=== PATIENT | female | born 1985 | race Caucasian/White ===

== ENCOUNTER 2017-02-10 10:08 | Observation (INO) | payer OTHER ==
[~2017-02-10 10:08] MED LIST: BENTYL20 M1 PO; COMPAZINE10 MG PO; COMPAZINE25 M1 RC; FIORICET1 TA1 PO; GLUCOPHAGE500 MG/TAB PO; HUMALOG100 UNIT/2 SQ; HUMULIN N100 U/ML SQ; HYOSCYAMINE0.125 M2 PO; IRON325 M1 PO; LEVEMIR100 U/M SQ; LEVEMIR100 U/ML SQ; LEVEMIR100 UNITS/ SC; METFORMIN HCL500 PO; MOTRIN800 MG PO; NORCO 5/3251 TA1 PO; NOVOLOG100 UNIT/1 SQ; PRENATAL + DHA1 EACH PO; PROMETHAZINE HC25 M3 PO; PROTONIX40 M2 PO; ROCALTROL0.25 MCG PO; SYNTHROID112 MCG PO; SYNTHROID150 MC1 PO; TRANSDERM-1 PATCH .7 TD; VICTOZA0.6 MG/0.1 SQ; [UNRECOGNIZED DRUG - OTHER]; [UNRECOGNIZED DRUG - OTHER] PO
[2017-02-10 11:42] LABS: BASO % 0.2 % (0-2); EOS % 0.9 % (0-7); EOSINOPHIL ABSOLUTE COUNT 0.1 tho/cmm (0.0-0.7); HCT-HEMATOCRIT 36.4 % (34.0-49.0); HGB-HEMOGLOBIN 12.3 gm/dl (12.0-15.5); IMMATURE GRANULOCYTES PERCENT 0.9 % (0-0.3); LYMPH % 18.3 % (20-45); LYMPH ABSOLUTE COUNT 2.2 tho/cmm (0.8-4.5); MCH (MEAN CORPUSCULAR HGB) 26.5 pg (28.0-32.0); MCHC MEAN CORPUSCULAR HGB CONC 33.8 % (32.0-36.0); MCV (MEAN CELL VOLUME) 78.4 fl (82.0-96.0); MEAN PLATELET VOLUME 8.8 cmc (9.4-12.4); MONO % 3.8 % (0-12); MONOCYTE ABSOLUTE COUNT 0.4 tho/cmm (0.0-1.2); NEUTROPHIL ABSOLUTE COUNT 8.9 tho/cmm (1.6-8.0); NEUTROPHIL-AUTOMATED 8.9 tho/cmm (1.6-8.0); NEUTROPHILS % 75.9 % (40-80); PLATELET COUNT 287 tho/cmm (150-450); RED BLOOD COUNT 4.64 mil/cmm (4.00-5.20); RED CELL DISTRIBUTION WIDTH 14.5 % (12.4-16.4); WHITE BLOOD COUNT 11.7 tho/cmm (4.0-10.0)
[2017-02-10 11:53] LABS: ALB/GLOB RATIO 0.5 (0.8-2.0); ALBUMIN 2.4 g/dl (3.5-5.0); ALKALINE PHOSPHATASE 119 U/L (33-138); ALT/SGPT 21 U/L (12-78); ANION GAP 15 mmol/L (0-20); AST/SGOT 26 U/L (10-40); BILIRUBIN,TOTAL 0.3 mg/dl (0-1.5); BLOOD UREA NITROGEN 8 mg/dl (6-24); CALCIUM 8.7 mg/dl (8.5-10.5); CARBON DIOXIDE-VENOUS 22 mmol/L (22-32); CHLORIDE 108 mmol/l (96-110); CREATININE 0.56 mg/dl (0.50-1.10); POTASSIUM 3.8 mmol/L (3.7-5.1); SODIUM 141 mmol/L (135-145); eGFR VALUE FOR BLACK >90 mL/Min
[2017-02-10 11:57] LABS: GLUCOSE 64 mg/dL (70-110)
[2017-02-10 12:04] LABS: URINE BILIRUBIN NEGATIVE (NEG); URINE BLOOD NEGATIVE (NEG); URINE GLUCOSE (UA) NEGATIVE (NEG); URINE KETONE NEGATIVE (NEG); URINE LEUKOCYTE ESTERASE NEGATIVE (NEG); URINE NITRITE NEGATIVE (NEG); URINE PROTEIN NEGATIVE (NEG); URINE SPECIFIC GRAVITY 1.005 (1.003-1.030)
[2017-02-10 12:05] LABS: URINE APPEARANCE CLEAR; URINE COLOR PALE YELLOW
== END 2017-02-10 15:45 ==
LOC: LDR 10:08
PROVIDERS: ADMIT Obstetrics & Gynecology Maternal & Fetal Medicine
DX: O09.893 Supervision of other high risk pregnancies, third trimester (principal); Z3A.33 33 weeks gestation of pregnancy; Z88.1 Allergy status to other antibiotic agents; Z90.49 Acquired absence of other specified parts of digestive tract; Z88.2 Allergy status to sulfonamides

== ENCOUNTER 2017-03-04 05:41 | Inpatient (IN) | payer OTHER ==
[2017-03-04] MEDS ORDERED: SYNTHROID125 MC1 PO (07:16)
[2017-03-04] MEDS ORDERED: PRENATAL VITAM1 EA11 (07:16)
[2017-03-04] MEDS ORDERED: MAGNESIUM OXID400 M1 PO (07:16)
[2017-03-04] MEDS ORDERED: ASPIR 8181 M1 (07:17)
[2017-03-04] MEDS ORDERED: ALLEGRA ALLERG180 M1 (07:18)
[2017-03-04 07:33] LABS: BASO % 0.2 % (0-2); EOS % 0.5 % (0-7); EOSINOPHIL ABSOLUTE COUNT 0.1 tho/cmm (0.0-0.7); HCT-HEMATOCRIT 36.1 % (34.0-49.0); HGB-HEMOGLOBIN 12.3 gm/dl (12.0-15.5); IMMATURE GRANULOCYTES ABSOLUTE 0.15 tho/cmm (0-0.03); IMMATURE GRANULOCYTES PERCENT 1.1 % (0-0.3); LYMPH % 17.6 % (20-45); LYMPH ABSOLUTE COUNT 2.4 tho/cmm (0.8-4.5); MCH (MEAN CORPUSCULAR HGB) 26.5 pg (28.0-32.0); MCHC MEAN CORPUSCULAR HGB CONC 34.1 % (32.0-36.0); MCV (MEAN CELL VOLUME) 77.8 fl (82.0-96.0); MEAN PLATELET VOLUME 9.2 cmc (9.4-12.4); MONOCYTE ABSOLUTE COUNT 0.7 tho/cmm (0.0-1.2); NEUTROPHIL ABSOLUTE COUNT 10.2 tho/cmm (1.6-8.0); NEUTROPHIL-AUTOMATED 10.2 tho/cmm (1.6-8.0); NEUTROPHILS % 75.6 % (40-80); PLATELET COUNT 255 tho/cmm (150-450); RED BLOOD COUNT 4.64 mil/cmm (4.00-5.20); RED CELL DISTRIBUTION WIDTH 14.8 % (12.4-16.4); WHITE BLOOD COUNT 13.5 tho/cmm (4.0-10.0)
[2017-03-05 05:57] LABS: BASO % 0.2 % (0-2); EOS % 0.6 % (0-7); EOSINOPHIL ABSOLUTE COUNT 0.1 tho/cmm (0.0-0.7); HCT-HEMATOCRIT 34.2 % (34.0-49.0); HGB-HEMOGLOBIN 11.3 gm/dl (12.0-15.5); IMMATURE GRANULOCYTES ABSOLUTE 0.07 tho/cmm (0-0.03); IMMATURE GRANULOCYTES PERCENT 0.4 % (0-0.3); LYMPH % 14.1 % (20-45); LYMPH ABSOLUTE COUNT 2.2 tho/cmm (0.8-4.5); MCH (MEAN CORPUSCULAR HGB) 25.9 pg (28.0-32.0); MCV (MEAN CELL VOLUME) 78.3 fl (82.0-96.0); MEAN PLATELET VOLUME 9.4 cmc (9.4-12.4); MONO % 6.4 % (0-12); NEUTROPHIL ABSOLUTE COUNT 12.2 tho/cmm (1.6-8.0); NEUTROPHIL-AUTOMATED 12.2 tho/cmm (1.6-8.0); NEUTROPHILS % 78.3 % (40-80); PLATELET COUNT 243 tho/cmm (150-450); RED BLOOD COUNT 4.37 mil/cmm (4.00-5.20); RED CELL DISTRIBUTION WIDTH 15.1 % (12.4-16.4); WHITE BLOOD COUNT 15.6 tho/cmm (4.0-10.0)
[2017-03-06] MEDS ORDERED: IBUPROFEN800 M1 PO (08:16)
== END 2017-03-06 14:00 | DRG 774 ==
LOC: LDR 05:41 → OBGE 21:28
PROVIDERS: ADMIT Obstetrics & Gynecology Maternal & Fetal Medicine
PROC: 10E0XZZ Delivery of Products of Conception, External Approach (ICD-10-PCS; principal; 2017-03-04)
PROC: 3E0P7GC Introduction of Other Therapeutic Substance into Female Reproductive, Via Natural or Artificial Opening (ICD-10-PCS; 2017-03-04)
PROC: 3E033VJ Introduction of Other Hormone into Peripheral Vein, Percutaneous Approach (ICD-10-PCS; 2017-03-04)
PROC: 10907ZC Drainage of Amniotic Fluid, Therapeutic from Products of Conception, Via Natural or Artificial Opening (ICD-10-PCS; 2017-03-04)
DX: O24.92 Unspecified diabetes mellitus in childbirth (principal); O69.81X0 Labor and delivery complicated by cord around neck, without compression, not applicable or unspecified; Z3A.36 36 weeks gestation of pregnancy; Z37.0 Single live birth; Z87.51 Personal history of pre-term labor
CPT/HCPCS: J2405; J2590; J7030